=== PATIENT | male | born 1965 | race Caucasian/White ===

== ENCOUNTER 2017-08-09 12:41 | Emergency (ER) | payer MEDICARE, OTHER ==
[~2017-08-09] VITALS: Ht 182.9 cm; Wt 124.3 kg
[~2017-08-09 12:41] MED LIST: AMIT50 PO; AMOCLA875 PO; AMOX500 PO; BACL10 PO; BENZ1; BENZ1 PO; BENZ2 PO; BUSP5; Bactrim Ds Tab1 EACH PO; Benztropine Mesy1 MG; CLON.5 PO; CLON1; CLON1 PO; CLON2; CODGUAEL PO; CYCL10 PO; DOC250 PO; DOXY100 PO; Desyrel50 MG PO; GABA100 PO; GABA300 PO; HYDACE5 PO; HYDGUAL120 PO; IBUP800 PO; Keflex500 MG PO; META800 PO; METCAR500 PO; NAPR500 PO; Naprosyn500 MG PO; Norco 5-325 Ta1 EACH PO; OLAN5 PO; Robaxin500 MG PO; SAPHRIS10 MG SL; TRIH2 PO; ZIPR80; ZIPR80 PO; [UNRECOGNIZED DRUG - REMARK]
[2017-08-09] MEDS ORDERED: CYCL10 PO (12:55)
[2017-08-09] MEDS ORDERED: ARIP10 PO (12:55)
[2017-08-09] MEDS ORDERED: OLAN10 PO (12:56)
[2017-08-09] MEDS ORDERED: Diclofenac Sodi50 MG PO (12:57)
[2017-08-09 13:44] LABS: BASOPHILS ABSOLUTE AUTO 0.05 K/mm3 (0.00-0.23); BASOPHILS PERCENT AUTO 1 % (0-2); EOSINOPHILS ABSOLUTE AUTO 0.36 K/mm3 (0.00-0.68); EOSINOPHILS PERCENT AUTO 4 % (0-6); Hematocrit 43.3 % (37.0-53.0); Hemoglobin 14.5 g/dL (13.5-17.5); IMMATURE GRAN ABSOLUTE AUTO 0.01 K/mm3 (0.00-0.10); IMMATURE GRAN PERCENT AUTO 0 % (0-1); LYMPHOCYTES ABSOLUTE AUTO 3.21 K/mm3 (0.84-5.20); LYMPHOCYTES PERCENT AUTO 39 % (21-46); MONOCYTES ABSOLUTE AUTO 0.83 K/mm3 (0.16-1.47); MONOCYTES PERCENT AUTO 10 % (4-13); Mean Corpuscular HGB 30.2 pg (26.0-34.0); Mean Corpuscular HGB Conc 33.5 g/dL (31.5-36.5); Mean Corpuscular Volume 90 fL (80-100); Mean Platelet Volume 10.9 fL (9.1-12.4); NEUTROPHILS ABSOLUTE AUTO 3.82 K/mm3 (1.96-9.15); NEUTROPHILS PERCENT AUTO 46 % (41-73); Platelet Count 266 K/mm3 (150-400); RDW Coefficient Variation 13.1 % (11.7-14.2); RDW Standard Deviation 43.1 fL (35.1-46.3); White Blood Cell Count 8.28 K/mm3 (4.00-11.30)
[2017-08-09 14:03] LABS: Alanine Aminotransfer (ALT/SGP 37 U/L (12-78); Albumin, Blood 3.6 g/dL (3.4-5.0); Albumin/Globulin Ratio 1.1 (0.8-1.8); Alk Phos 79 U/L (50-136); Anion Gap 7 mmol/L (6-16); Aspartate Aminotrans (AST/SGOT 31 U/L (12-37); Bilirubin, Total 0.4 mg/dL (0.1-1.0); Blood Urea Nitrogen 16 mg/dL (8-24); Bun/Creatinine Ratio 16.3 (12.0-20.0); CO2, Blood 27 mmol/L (21-32); Chloride, Blood 106 mmol/L (98-108); Creatinine, Blood 0.98 mg/dL (0.60-1.20); Globulin, Blood 3.4 g/dL (2.2-4.0); Glomerular Filtration Rate >60 (60-); Glucose, Blood 107 mg/dL (70-99); Potassium, Blood 4.7 mmol/L (3.5-5.5); Sodium, Blood 140 mmol/L (136-145)
[2017-08-09] MEDS ORDERED: Ultram50 MG PO (14:24)
[2017-08-09] MEDS ORDERED: METPRE4DP PO (14:24)
[2018-01-27] MEDS ORDERED: CYCL10 PO (19:51)
== END 2017-08-09 14:37 | disposition home or self-care (01) ==
LOC: ER 12:41
PROVIDERS: Internal Medicine
DX: M54.16 Radiculopathy, lumbar region (principal); F17.210 Nicotine dependence, cigarettes, uncomplicated
CPT/HCPCS: 36415; 80053; 83690; 85025; 96374; 96375; 99283; J1100; J1885

== ENCOUNTER 2017-09-01 05:21 | Emergency (ER) | payer MEDICARE, OTHER ==
[~2017-09-01] VITALS: Ht 182.9 cm; Wt 79.4 kg
[~2017-09-01 05:21] MED LIST changes: +ARIP10 PO; +Diclofenac Sodi50 MG PO; +METPRE4DP PO; +OLAN10 PO; +Ultram50 MG PO
[2017-09-01 05:45] LABS: Source, Urine Clean Catch
[2017-09-01 05:48] LABS: Blood, Urine Neg (Neg); Glucose Qualitative, Urine Neg (Neg); Ketones, Urine Neg (Neg); Leukocyte Esterase, Urine 1+ (Neg); Nitrite, Urine Neg (Neg); Protein, Urine Neg (Neg); Specific Gravity, Urine 1.025 (1.003-1.022); Urobilinogen, Urine 1+ (Normal)
[2017-09-01 05:57] LABS: Amorphous Light (0-Heavy); Appearance, Urine Hazy (Clear); Bacteria Mod /hpf; Bilirubin, Urine 1+ (Neg); Color, Urine Yellow (P-Yellow); Hyaline Casts 0-2 /lpf (0-2); Mucus Light (0-Heavy); Red Blood Cells, Urine Not Seen /hpf (0-2); Squamous Epithelial Cells Not Seen /hpf (Few)
[2017-09-01 05:59] LABS: U Amphetamine Screen DETECTED; U Barbituate Screen Not Detected; U Benzodiazapine Screen Not Detected; U Buprenorphine Screen Not Detected; U Cannabinoids Screen DETECTED; U Cocaine Screen Not Detected; U Methadone Screen Not Detected; U Methamphetamine Screen DETECTED; U Opiates Screen Not Detected; U Oxycodone Screen Not Detected; U Phencyclidine Screen Not Detected; U Propoxyphene Screen Not Detected
[2017-09-01 06:14] LABS: BASOPHILS ABSOLUTE AUTO 0.03 K/mm3 (0.00-0.23); BASOPHILS PERCENT AUTO 1 % (0-2); EOSINOPHILS ABSOLUTE AUTO 0.17 K/mm3 (0.00-0.68); EOSINOPHILS PERCENT AUTO 3 % (0-6); Hemoglobin 13.6 g/dL (13.5-17.5); IMMATURE GRAN ABSOLUTE AUTO 0.01 K/mm3 (0.00-0.10); IMMATURE GRAN PERCENT AUTO 0 % (0-1); LYMPHOCYTES ABSOLUTE AUTO 1.06 K/mm3 (0.84-5.20); LYMPHOCYTES PERCENT AUTO 18 % (21-46); MONOCYTES ABSOLUTE AUTO 0.49 K/mm3 (0.16-1.47); MONOCYTES PERCENT AUTO 8 % (4-13); Mean Corpuscular HGB 30.1 pg (26.0-34.0); Mean Corpuscular Volume 89 fL (80-100); Mean Platelet Volume 10.1 fL (9.1-12.4); NEUTROPHILS ABSOLUTE AUTO 4.13 K/mm3 (1.96-9.15); NEUTROPHILS PERCENT AUTO 70 % (41-73); Platelet Count 197 K/mm3 (150-400); RDW Coefficient Variation 12.8 % (11.7-14.2); RDW Standard Deviation 41.9 fL (35.1-46.3); Red Blood Cell Count 4.52 M/mm3 (4.30-5.90); White Blood Cell Count 5.89 K/mm3 (4.00-11.30)
[2017-09-01 06:34] LABS: Alanine Aminotransfer (ALT/SGP 59 U/L (12-78); Albumin, Blood 3.7 g/dL (3.4-5.0); Albumin/Globulin Ratio 1.1 (0.8-1.8); Alk Phos 68 U/L (50-136); Anion Gap 9 mmol/L (6-16); Aspartate Aminotrans (AST/SGOT 87 U/L (12-37); Bilirubin, Total 0.6 mg/dL (0.1-1.0); Blood Urea Nitrogen 20 mg/dL (8-24); Bun/Creatinine Ratio 29.2 (12.0-20.0); CO2, Blood 24 mmol/L (21-32); Calcium, Blood 8.5 mg/dL (8.5-10.1); Chloride, Blood 107 mmol/L (98-108); Creatinine, Blood 0.69 mg/dL (0.60-1.20); Ethanol (Alcohol), Blood, Med <3 mg/dL; Globulin, Blood 3.4 g/dL (2.2-4.0); Glomerular Filtration Rate >60 (60-); Glucose, Blood 113 mg/dL (70-99); Potassium, Blood 3.8 mmol/L (3.5-5.5); Salicylate 2.2 mg/dL (2.8-20.0); Sodium, Blood 140 mmol/L (136-145); Total Protein, Blood 7.1 g/dL (6.4-8.2)
[2017-09-01 06:38] LABS: Thyroid Stimulating Hormone 0.986 uIU/mL (0.360-4.800)
[2017-09-01 06:39] LABS: Acetaminophen, Random <2.0 ug/mL (10.0-30.0)
[2017-09-01] MEDS ORDERED: BENZ2 PO (07:08)
[2018-01-27] MEDS ORDERED: CYCL10 PO (19:51)
== END 2017-09-01 12:05 | disposition home or self-care (01) ==
LOC: ER 05:21
PROVIDERS: Emergency Medicine
DX: F20.5 Residual schizophrenia (principal); F19.10 Other psychoactive substance abuse, uncomplicated; F17.200 Nicotine dependence, unspecified, uncomplicated; Z79.899 Other long term (current) drug therapy
CPT/HCPCS: 36415; 80053; 81001; 84443; 85025; 87086; 96372; 99283; G0480; J1885

== ENCOUNTER 2017-09-01 15:33 | Emergency (ER) | payer MEDICARE, OTHER ==
[~2017-09-01] VITALS: Ht 190.5 cm; Wt 129.3 kg
[2018-01-27] MEDS ORDERED: CYCL10 PO (19:51)
== END 2017-09-01 16:10 | disposition home or self-care (01) ==
LOC: ER 15:33
DX: M54.5 Low back pain (principal); G89.29 Other chronic pain; F17.200 Nicotine dependence, unspecified, uncomplicated; Z79.899 Other long term (current) drug therapy
CPT/HCPCS: 99283

== ENCOUNTER 2017-09-11 10:33 | Observation (INO) | payer MEDICARE, OTHER ==
[~2017-09-11] VITALS: Ht 185.4 cm; Wt 109.1 kg
[2017-09-11] MEDS ORDERED: IBUP800 PO (21:09)
[2017-09-12] MEDS ORDERED: DEXA4 PO (10:17)
[2018-01-27] MEDS ORDERED: CYCL10 PO (19:51)
== END 2017-09-12 10:59 | disposition home or self-care (01) ==
LOC: ER 10:33 → MEDS 10:34 → ENPENDDIS 09-12 10:16 → MEDS 09-12 10:59
DX: M48.061 Spinal stenosis, lumbar region without neurogenic claudication (principal); F20.0 Paranoid schizophrenia; G89.29 Other chronic pain; F15.10 Other stimulant abuse, uncomplicated; F12.10 Cannabis abuse, uncomplicated; F17.200 Nicotine dependence, unspecified, uncomplicated; Z98.890 Other specified postprocedural states; Z79.899 Other long term (current) drug therapy
CPT/HCPCS: 51798; 72100; 90471; 90714; 96372; 96374; 96376; 97161; 97530; 99285; G0378; G8978; G8979; J1100; J1650

== ENCOUNTER 2017-11-09 08:37 | Emergency (ER) | payer MEDICARE, OTHER ==
[~2017-11-09] VITALS: Ht 185.4 cm; Wt 115.7 kg
[~2017-11-09 08:37] MED LIST changes: +DEXA4 PO
[2017-11-09] MEDS ORDERED: CLON.2 PO (08:48)
[2017-11-09 09:30] LABS: Calcium, Ionized (POC) 1.27 mmol/L (1.10-1.46); Chloride (POC) 105 mmol/L (98-108); Creatinine (POC) 0.6 mg/dL (0.8-1.3); Glucose (ISTAT POC) 121 mg/dL (70-99); Hemoglobin (POC) 13.3 g/dL (13.5-17.5); Sodium (POC) 142 mmol/L (135-148); Total CO2 (POC) 26 mmol/L (21-32)
== END 2017-11-09 09:40 | disposition home or self-care (01) ==
LOC: ER 08:37
PROVIDERS: Physician Assistant
DX: M54.5 Low back pain (principal); G89.29 Other chronic pain; F17.200 Nicotine dependence, unspecified, uncomplicated; Z79.899 Other long term (current) drug therapy
CPT/HCPCS: 36415; 80047; 85014; 99283

== ENCOUNTER 2017-12-23 20:19 | Observation (INO) | payer MEDICARE, OTHER ==
[~2017-12-23] VITALS: Ht 185.4 cm; Wt 108.9 kg
[~2017-12-23 20:19] MED LIST changes: +CLON.2 PO
[2017-12-23 21:15] LABS: Source, Urine Voided
[2017-12-23 21:20] LABS: BASOPHILS ABSOLUTE AUTO 0.03 K/mm3 (0.00-0.23); BASOPHILS PERCENT AUTO 0 % (0-2); EOSINOPHILS ABSOLUTE AUTO 0.12 K/mm3 (0.00-0.68); EOSINOPHILS PERCENT AUTO 2 % (0-6); Hematocrit 40.8 % (37.0-53.0); Hemoglobin 13.3 g/dL (13.5-17.5); IMMATURE GRAN ABSOLUTE AUTO 0.02 K/mm3 (0.00-0.10); IMMATURE GRAN PERCENT AUTO 0 % (0-1); LYMPHOCYTES ABSOLUTE AUTO 1.88 K/mm3 (0.84-5.20); LYMPHOCYTES PERCENT AUTO 23 % (21-46); MONOCYTES ABSOLUTE AUTO 0.61 K/mm3 (0.16-1.47); MONOCYTES PERCENT AUTO 8 % (4-13); Mean Corpuscular HGB 29.2 pg (26.0-34.0); Mean Corpuscular HGB Conc 32.6 g/dL (31.5-36.5); Mean Corpuscular Volume 90 fL (80-100); Mean Platelet Volume 10.2 fL (9.1-12.4); NEUTROPHILS PERCENT AUTO 67 % (41-73); Platelet Count 264 K/mm3 (150-400); RDW Coefficient Variation 14.3 % (11.7-14.2); RDW Standard Deviation 46.6 fL (35.1-46.3); Red Blood Cell Count 4.55 M/mm3 (4.30-5.90); White Blood Cell Count 8.16 K/mm3 (4.00-11.30)
[2017-12-23 21:34] LABS: Appearance, Urine Hazy (Clear); Blood, Urine 5+ (Neg); Color, Urine Amber (P-Yellow); Glucose Qualitative, Urine Neg (Neg); Ketones, Urine 2+ (Neg); Leukocyte Esterase, Urine 1+ (Neg); Nitrite, Urine Neg (Neg); Protein, Urine 2+ (Neg); Specific Gravity, Urine 1.025 (1.003-1.022); Urobilinogen, Urine 1+ (Normal)
[2017-12-23 21:45] LABS: Bilirubin, Urine 1+ (Neg)
[2017-12-23 21:47] LABS: Alanine Aminotransfer (ALT/SGP 35 U/L (12-78); Albumin/Globulin Ratio 1.4 (0.8-1.8); Alk Phos 93 U/L (50-136); Anion Gap 7 mmol/L (6-16); Aspartate Aminotrans (AST/SGOT 43 U/L (12-37); Bilirubin, Total 0.7 mg/dL (0.1-1.0); Blood Urea Nitrogen 14 mg/dL (8-24); Bun/Creatinine Ratio 13.6 (12.0-20.0); CO2, Blood 29 mmol/L (21-32); Chloride, Blood 110 mmol/L (98-108); Creatinine, Blood 1.03 mg/dL (0.60-1.20); Ethanol (Alcohol), Blood, Med <3 mg/dL; Globulin, Blood 2.9 g/dL (2.2-4.0); Glomerular Filtration Rate >60 (60-); Glucose, Blood 87 mg/dL (70-99); Potassium, Blood 4.2 mmol/L (3.5-5.5); Salicylate 2.6 mg/dL (2.8-20.0); Sodium, Blood 146 mmol/L (136-145); Total Protein, Blood 6.9 g/dL (6.4-8.2)
[2017-12-23 21:48] LABS: Amorphous Mod (0-Heavy); Bacteria Few /hpf; Calcium Oxalate Crystals Mod /hpf; Mucus Light (0-Heavy); Squamous Epithelial Cells Rare /hpf (Few)
[2017-12-23 21:49] LABS: U Amphetamine Screen DETECTED; U Barbituate Screen Not Detected; U Benzodiazapine Screen Not Detected; U Buprenorphine Screen Not Detected; U Cannabinoids Screen DETECTED; U Cocaine Screen Not Detected; U Methadone Screen Not Detected; U Methamphetamine Screen DETECTED; U Opiates Screen Not Detected; U Oxycodone Screen Not Detected; U Phencyclidine Screen Not Detected; U Propoxyphene Screen Not Detected
[2017-12-23 21:50] LABS: Acetaminophen, Random <2.0 ug/mL (10.0-30.0); Thyroid Stimulating Hormone 0.924 uIU/mL (0.360-4.800)
== END 2017-12-24 08:28 | disposition home or self-care (01) ==
LOC: ER 20:19 → EOR 20:20
PROVIDERS: Emergency Medicine
DX: R45.851 Suicidal ideations (principal); F20.0 Paranoid schizophrenia; F15.159 Other stimulant abuse with stimulant-induced psychotic disorder, unspecified; M54.9 Dorsalgia, unspecified; G89.29 Other chronic pain; F17.210 Nicotine dependence, cigarettes, uncomplicated; Z79.899 Other long term (current) drug therapy
CPT/HCPCS: 36415; 80053; 81001; 84443; 85025; 87086; 99285; G0378; G0480

== ENCOUNTER 2017-12-26 09:32 | Observation (INO) | payer MEDICARE, OTHER ==
[~2017-12-26] VITALS: Ht 185.4 cm; Wt 108.9 kg
[2017-12-26 11:19] LABS: BASOPHILS ABSOLUTE AUTO 0.02 K/mm3 (0.00-0.23); BASOPHILS PERCENT AUTO 0 % (0-2); EOSINOPHILS ABSOLUTE AUTO 0.09 K/mm3 (0.00-0.68); EOSINOPHILS PERCENT AUTO 1 % (0-6); IMMATURE GRAN ABSOLUTE AUTO 0.02 K/mm3 (0.00-0.10); IMMATURE GRAN PERCENT AUTO 0 % (0-1); LYMPHOCYTES ABSOLUTE AUTO 1.25 K/mm3 (0.84-5.20); LYMPHOCYTES PERCENT AUTO 19 % (21-46); MONOCYTES ABSOLUTE AUTO 0.57 K/mm3 (0.16-1.47); MONOCYTES PERCENT AUTO 9 % (4-13); Mean Corpuscular HGB 28.3 pg (26.0-34.0); Mean Corpuscular HGB Conc 31.7 g/dL (31.5-36.5); Mean Corpuscular Volume 89 fL (80-100); Mean Platelet Volume 10.2 fL (9.1-12.4); NEUTROPHILS ABSOLUTE AUTO 4.78 K/mm3 (1.96-9.15); NEUTROPHILS PERCENT AUTO 71 % (41-73); Platelet Count 218 K/mm3 (150-400); RDW Coefficient Variation 14.5 % (11.7-14.2); RDW Standard Deviation 46.7 fL (35.1-46.3); White Blood Cell Count 6.73 K/mm3 (4.00-11.30)
[2017-12-26 11:43] LABS: Alanine Aminotransfer (ALT/SGP 26 U/L (12-78); Albumin, Blood 3.6 g/dL (3.4-5.0); Albumin/Globulin Ratio 1.1 (0.8-1.8); Alk Phos 91 U/L (50-136); Anion Gap 7 mmol/L (6-16); Aspartate Aminotrans (AST/SGOT 20 U/L (12-37); Bilirubin, Total 0.8 mg/dL (0.1-1.0); Blood Urea Nitrogen 9 mg/dL (8-24); Bun/Creatinine Ratio 8.7 (12.0-20.0); CO2, Blood 29 mmol/L (21-32); Calcium, Blood 8.6 mg/dL (8.5-10.1); Chloride, Blood 108 mmol/L (98-108); Creatinine, Blood 1.03 mg/dL (0.60-1.20); Ethanol (Alcohol), Blood, Med <3 mg/dL; Globulin, Blood 3.2 g/dL (2.2-4.0); Glomerular Filtration Rate >60 (60-); Glucose, Blood 116 mg/dL (70-99); Salicylate 2.9 mg/dL (2.8-20.0); Sodium, Blood 144 mmol/L (136-145); Total Protein, Blood 6.8 g/dL (6.4-8.2)
[2017-12-26 11:45] LABS: Thyroid Stimulating Hormone 0.601 uIU/mL (0.360-4.800)
[2017-12-26 11:54] LABS: Acetaminophen, Random <2.0 ug/mL (10.0-30.0)
[2017-12-26 13:11] LABS: Source, Urine Clean Catch
[2017-12-26 13:24] LABS: Bilirubin, Urine Neg (Neg); Blood, Urine Neg (Neg); Glucose Qualitative, Urine Neg (Neg); Ketones, Urine 1+ (Neg); Leukocyte Esterase, Urine Neg (Neg); Nitrite, Urine Neg (Neg); Protein, Urine Neg (Neg); Urobilinogen, Urine NORM (Normal)
[2017-12-26 13:37] LABS: U Amphetamine Screen DETECTED; U Cannabinoids Screen DETECTED; U Methamphetamine Screen DETECTED
[2017-12-26 13:38] LABS: Appearance, Urine Clear (Clear); Color, Urine Yellow (P-Yellow); U Barbituate Screen Not Detected; U Benzodiazapine Screen Not Detected; U Buprenorphine Screen Not Detected; U Cocaine Screen Not Detected; U Methadone Screen Not Detected; U Opiates Screen Not Detected; U Oxycodone Screen Not Detected; U Phencyclidine Screen Not Detected; U Propoxyphene Screen Not Detected
== END 2017-12-26 14:29 | disposition home or self-care (01) ==
LOC: ER 09:32 → EOR 09:33
PROVIDERS: Emergency Medicine
DX: F15.10 Other stimulant abuse, uncomplicated (principal); F20.0 Paranoid schizophrenia; F17.200 Nicotine dependence, unspecified, uncomplicated; M54.9 Dorsalgia, unspecified; G89.29 Other chronic pain; Z79.899 Other long term (current) drug therapy
CPT/HCPCS: 36415; 80053; 81003; 84443; 85025; 99285; G0378; G0480; Q3014

== ENCOUNTER 2018-01-01 22:32 | Observation (INO) | payer MEDICARE, OTHER ==
[~2018-01-01] VITALS: Ht 185.4 cm; Wt 109.3 kg
[2018-01-01] MEDS ORDERED: CYCL10 PO (22:41)
[2018-01-01] MEDS ORDERED: TRAM50 PO (22:41)
[2018-01-01] MEDS ORDERED: Diclofenac Sodi50 MG PO (22:41)
[2018-01-01] MEDS ORDERED: SAPHRIS10 MG SL (22:42)
[2018-01-02 01:02] LABS: Source, Urine Voided
[2018-01-02 01:07] LABS: BASOPHILS ABSOLUTE AUTO 0.05 K/mm3 (0.00-0.23); BASOPHILS PERCENT AUTO 1 % (0-2); EOSINOPHILS ABSOLUTE AUTO 0.29 K/mm3 (0.00-0.68); EOSINOPHILS PERCENT AUTO 3 % (0-6); Hematocrit 38.6 % (37.0-53.0); Hemoglobin 12.9 g/dL (13.5-17.5); IMMATURE GRAN ABSOLUTE AUTO 0.01 K/mm3 (0.00-0.10); IMMATURE GRAN PERCENT AUTO 0 % (0-1); LYMPHOCYTES ABSOLUTE AUTO 2.29 K/mm3 (0.84-5.20); LYMPHOCYTES PERCENT AUTO 27 % (21-46); MONOCYTES PERCENT AUTO 9 % (4-13); Mean Corpuscular HGB 29.1 pg (26.0-34.0); Mean Corpuscular HGB Conc 33.4 g/dL (31.5-36.5); Mean Corpuscular Volume 87 fL (80-100); Mean Platelet Volume 10.4 fL (9.1-12.4); NEUTROPHILS ABSOLUTE AUTO 5.12 K/mm3 (1.96-9.15); NEUTROPHILS PERCENT AUTO 60 % (41-73); Platelet Count 265 K/mm3 (150-400); RDW Coefficient Variation 14.1 % (11.7-14.2); RDW Standard Deviation 45.6 fL (35.1-46.3); Red Blood Cell Count 4.43 M/mm3 (4.30-5.90); White Blood Cell Count 8.56 K/mm3 (4.00-11.30)
[2018-01-02 01:13] LABS: Blood, Urine Neg (Neg); Glucose Qualitative, Urine Neg (Neg); Ketones, Urine Neg (Neg); Leukocyte Esterase, Urine 1+ (Neg); Nitrite, Urine Neg (Neg); Protein, Urine 1+ (Neg); Urobilinogen, Urine 3+ (Normal)
[2018-01-02 01:15] LABS: Appearance, Urine Clear (Clear); Bilirubin, Urine 1+ (Neg); Color, Urine Amber (P-Yellow)
[2018-01-02 01:29] LABS: U Amphetamine Screen DETECTED; U Barbituate Screen Not Detected; U Benzodiazapine Screen Not Detected; U Buprenorphine Screen Not Detected; U Cannabinoids Screen DETECTED; U Cocaine Screen Not Detected; U Methadone Screen Not Detected; U Methamphetamine Screen DETECTED; U Opiates Screen Not Detected; U Oxycodone Screen Not Detected; U Phencyclidine Screen Not Detected; U Propoxyphene Screen Not Detected
[2018-01-02 01:30] LABS: Alanine Aminotransfer (ALT/SGP 50 U/L (12-78); Albumin, Blood 3.4 g/dL (3.4-5.0); Albumin/Globulin Ratio 1.1 (0.8-1.8); Alk Phos 105 U/L (50-136); Anion Gap 11 mmol/L (6-16); Aspartate Aminotrans (AST/SGOT 39 U/L (12-37); Bilirubin, Total 0.5 mg/dL (0.1-1.0); Blood Urea Nitrogen 17 mg/dL (8-24); CO2, Blood 25 mmol/L (21-32); Calcium, Blood 8.3 mg/dL (8.5-10.1); Chloride, Blood 106 mmol/L (98-108); Creatinine, Blood 0.77 mg/dL (0.60-1.20); Ethanol (Alcohol), Blood, Med <3 mg/dL; Globulin, Blood 3.2 g/dL (2.2-4.0); Glomerular Filtration Rate >60 (60-); Glucose, Blood 94 mg/dL (70-99); Potassium, Blood 3.6 mmol/L (3.5-5.5); Salicylate 3.4 mg/dL (2.8-20.0); Sodium, Blood 142 mmol/L (136-145); Total Protein, Blood 6.6 g/dL (6.4-8.2)
[2018-01-02 01:33] LABS: Bacteria Rare /hpf; Mucus Light ([, 0-Heavy]); Red Blood Cells, Urine Not Seen /hpf (0-2); Squamous Epithelial Cells Not Seen /hpf (Few); White Blood Cells, Urine 0-2 /hpf (0-5)
[2018-01-02 01:35] LABS: Acetaminophen, Random <2.0 ug/mL (10.0-30.0)
== END 2018-01-02 09:20 | disposition home or self-care (01) ==
LOC: ER 22:32 → EOR 01-02 02:31
PROVIDERS: Emergency Medicine
DX: R45.851 Suicidal ideations (principal); F20.9 Schizophrenia, unspecified; F15.959 Other stimulant use, unspecified with stimulant-induced psychotic disorder, unspecified; Z79.899 Other long term (current) drug therapy; Z91.14 Patient's other noncompliance with medication regimen
CPT/HCPCS: 36415; 80053; 81001; 84443; 85025; 87086; 99285; G0378; G0480; Q3014

== ENCOUNTER 2018-01-02 11:37 | Observation (INO) | payer MEDICARE, OTHER ==
[~2018-01-02] VITALS: Ht 182.9 cm; Wt 109.3 kg
[~2018-01-02 11:37] MED LIST changes: +TRAM50 PO
== END 2018-01-02 15:13 | disposition home or self-care (01) ==
LOC: ER 11:37 → EOR 11:38
DX: R44.0 Auditory hallucinations (principal); F20.9 Schizophrenia, unspecified; M54.9 Dorsalgia, unspecified; G89.29 Other chronic pain; F17.210 Nicotine dependence, cigarettes, uncomplicated; Z79.899 Other long term (current) drug therapy
CPT/HCPCS: 96372; 99285-25; G0378

== ENCOUNTER 2018-01-18 10:47 | Emergency (ER) | payer MEDICARE, OTHER ==
[~2018-01-18] VITALS: Ht 185.4 cm; Wt 111.6 kg
[2018-01-18] MEDS ORDERED: Naprosyn500 MG PO (11:26)
== END 2018-01-18 11:31 | disposition home or self-care (01) ==
LOC: ER 10:47
DX: G89.29 Other chronic pain (principal); M54.5 Low back pain; Z79.899 Other long term (current) drug therapy; F17.210 Nicotine dependence, cigarettes, uncomplicated
CPT/HCPCS: 99282

== ENCOUNTER 2018-02-20 17:13 | Emergency (ER) | payer MEDICARE, OTHER ==
[~2018-02-20] VITALS: Ht 185.4 cm; Wt 104.8 kg
[2018-02-20 20:16] LABS: BASOPHILS ABSOLUTE AUTO 0.03 K/mm3 (0.00-0.23); BASOPHILS PERCENT AUTO 1 % (0-2); EOSINOPHILS ABSOLUTE AUTO 0.21 K/mm3 (0.00-0.68); EOSINOPHILS PERCENT AUTO 4 % (0-6); Hematocrit 37.4 % (37.0-53.0); Hemoglobin 12.5 g/dL (13.5-17.5); IMMATURE GRAN ABSOLUTE AUTO 0.01 K/mm3 (0.00-0.10); IMMATURE GRAN PERCENT AUTO 0 % (0-1); LYMPHOCYTES PERCENT AUTO 43 % (21-46); MONOCYTES ABSOLUTE AUTO 0.45 K/mm3 (0.16-1.47); MONOCYTES PERCENT AUTO 8 % (4-13); Mean Corpuscular HGB 29.6 pg (26.0-34.0); Mean Corpuscular HGB Conc 33.4 g/dL (31.5-36.5); Mean Corpuscular Volume 89 fL (80-100); Mean Platelet Volume 10.4 fL (9.1-12.4); NEUTROPHILS ABSOLUTE AUTO 2.67 K/mm3 (1.96-9.15); NEUTROPHILS PERCENT AUTO 45 % (41-73); Platelet Count 224 K/mm3 (150-400); RDW Coefficient Variation 14.4 % (11.7-14.2); RDW Standard Deviation 46.3 fL (35.1-46.3); Red Blood Cell Count 4.22 M/mm3 (4.30-5.90); White Blood Cell Count 5.87 K/mm3 (4.00-11.30)
[2018-02-20 20:34] LABS: C-REACTIVE PROTEIN, EXT RANGE <0.290 mg/dL (0.000-0.300)
[2018-02-20 20:36] LABS: Alanine Aminotransfer (ALT/SGP 36 U/L (12-78); Albumin, Blood 3.6 g/dL (3.4-5.0); Albumin/Globulin Ratio 1.2 (0.8-1.8); Alk Phos 83 U/L (50-136); Anion Gap 6 mmol/L (6-16); Aspartate Aminotrans (AST/SGOT 26 U/L (12-37); Bilirubin, Total 0.3 mg/dL (0.1-1.0); Blood Urea Nitrogen 17 mg/dL (8-24); Bun/Creatinine Ratio 24.4 (12.0-20.0); CO2, Blood 26 mmol/L (21-32); Calcium, Blood 8.7 mg/dL (8.5-10.1); Chloride, Blood 109 mmol/L (98-108); Globulin, Blood 2.9 g/dL (2.2-4.0); Glomerular Filtration Rate >60 (60-); Glucose, Blood 104 mg/dL (70-99); Potassium, Blood 4.1 mmol/L (3.5-5.5); Sodium, Blood 141 mmol/L (136-145); Total Protein, Blood 6.5 g/dL (6.4-8.2)
[2018-02-20] MEDS ORDERED: LIDO700A20 TOP (21:58)
[2018-02-20] MEDS ORDERED: Baclofen10 MG PO (21:58)
== END 2018-02-20 22:23 | disposition home or self-care (01) ==
LOC: ER 17:13
PROVIDERS: Physician Assistant
DX: G89.29 Other chronic pain (principal); M54.5 Low back pain; F17.210 Nicotine dependence, cigarettes, uncomplicated; Z79.899 Other long term (current) drug therapy
CPT/HCPCS: 72100; 72132; 80053; 85025; 85651; 86140; 96374; 96375; 99284-25; J1100; J1885; Q9967

== ENCOUNTER → 2018-03-14 | Outpatient (CLI) | payer MEDICARE, OTHER ==
[~2018-03-14] MED LIST changes: +Baclofen10 MG PO; +LIDO700A20 TOP
[2018-03-14 16:44] LABS: U Amphetamine Screen Not Detected; U Barbituate Screen Not Detected; U Benzodiazapine Screen Not Detected; U Buprenorphine Screen Not Detected; U Cannabinoids Screen DETECTED; U Cocaine Screen Not Detected; U Methadone Screen Not Detected; U Methamphetamine Screen Not Detected; U Opiates Screen Not Detected; U Oxycodone Screen Not Detected; U Phencyclidine Screen Not Detected; U Propoxyphene Screen Not Detected
== END ==
LOC: LAB SHORT 12:00 → LAB 12:00
PROVIDERS: Nurse Practitioner Family
DX: Z51.81 Encounter for therapeutic drug level monitoring (principal); Z79.899 Other long term (current) drug therapy

== ENCOUNTER 2018-11-05 20:23 | Emergency (ER) | payer MEDICARE, OTHER ==
[~2018-11-05] VITALS: Ht 185.4 cm; Wt 102.1 kg
[~2018-11-05 20:23] MED LIST changes: +SULI150 PO
[2018-11-05 21:11] LABS: BASOPHILS ABSOLUTE AUTO 0.08 K/mm3 (0.00-0.23); BASOPHILS PERCENT AUTO 1 % (0-2); EOSINOPHILS ABSOLUTE AUTO 0.24 K/mm3 (0.00-0.68); EOSINOPHILS PERCENT AUTO 3 % (0-6); Hematocrit 46.4 % (37.0-53.0); Hemoglobin 15.1 g/dL (13.5-17.5); IMMATURE GRAN ABSOLUTE AUTO 0.02 K/mm3 (0.00-0.10); IMMATURE GRAN PERCENT AUTO 0 % (0-1); LYMPHOCYTES ABSOLUTE AUTO 2.36 K/mm3 (0.84-5.20); LYMPHOCYTES PERCENT AUTO 29 % (21-46); MONOCYTES ABSOLUTE AUTO 0.58 K/mm3 (0.16-1.47); MONOCYTES PERCENT AUTO 7 % (4-13); Mean Corpuscular HGB 29.8 pg (26.0-34.0); Mean Corpuscular HGB Conc 32.5 g/dL (31.5-36.5); Mean Corpuscular Volume 92 fL (80-100); NEUTROPHILS PERCENT AUTO 60 % (41-73); Platelet Count 220 K/mm3 (150-400); RDW Coefficient Variation 13.1 % (11.7-14.2); RDW Standard Deviation 44.1 fL (35.1-46.3); Red Blood Cell Count 5.06 M/mm3 (4.30-5.90); White Blood Cell Count 8.18 K/mm3 (4.00-11.30)
[2018-11-05 21:26] LABS: Alanine Aminotransfer (ALT/SGP 22 U/L (12-78); Albumin, Blood 3.6 g/dL (3.4-5.0); Albumin/Globulin Ratio 1.2 (0.8-1.8); Alk Phos 98 U/L (50-136); Anion Gap 7 mmol/L (6-16); Aspartate Aminotrans (AST/SGOT 24 U/L (12-37); Bilirubin, Total 0.4 mg/dL (0.1-1.0); Blood Urea Nitrogen 14 mg/dL (8-24); Bun/Creatinine Ratio 19.6 (12.0-20.0); CO2, Blood 27 mmol/L (21-32); Calcium, Blood 8.7 mg/dL (8.5-10.1); Chloride, Blood 108 mmol/L (98-108); Creatinine, Blood 0.72 mg/dL (0.60-1.20); Glomerular Filtration Rate >60 (60-); Glucose, Blood 131 mg/dL (70-99); Potassium, Blood 3.6 mmol/L (3.5-5.5); Sodium, Blood 142 mmol/L (136-145); Total Protein, Blood 6.6 g/dL (6.4-8.2); Troponin I <0.015 ng/mL (0.000-0.040)
[2018-11-05] MEDS ORDERED: BENZ2 (21:44)
[2018-11-05] MEDS ORDERED: DIPH50 PO (21:45)
[2018-11-05 23:31] LABS: PCO2 Arterial 47.8 mmHg (35-45)
== END 2018-11-06 00:05 | disposition home or self-care (01) ==
LOC: ER 20:23
PROVIDERS: Emergency Medicine
DX: F41.0 Panic disorder [episodic paroxysmal anxiety] (principal); F20.9 Schizophrenia, unspecified; F17.210 Nicotine dependence, cigarettes, uncomplicated
CPT/HCPCS: 36415; 36600; 71045; 80053; 82803; 84484; 85025; 85379; 93005; 93010; 96374; 99284-25; J2060

== ENCOUNTER 2018-12-24 10:56 | Emergency (ER) | payer MEDICARE, OTHER ==
[~2018-12-24] VITALS: Ht 185.4 cm; Wt 103.9 kg
[~2018-12-24 10:56] MED LIST changes: -CLON.2 PO; +DIPH50 PO; -OLAN10 PO
[2018-12-24 11:18] LABS: BASOPHILS ABSOLUTE AUTO 0.02 K/mm3 (0.00-0.23); BASOPHILS PERCENT AUTO 0 % (0-2); EOSINOPHILS ABSOLUTE AUTO 0.08 K/mm3 (0.00-0.68); EOSINOPHILS PERCENT AUTO 1 % (0-6); Hematocrit 48.3 % (37.0-53.0); Hemoglobin 15.8 g/dL (13.5-17.5); IMMATURE GRAN ABSOLUTE AUTO 0.01 K/mm3 (0.00-0.10); IMMATURE GRAN PERCENT AUTO 0 % (0-1); LYMPHOCYTES ABSOLUTE AUTO 1.26 K/mm3 (0.84-5.20); LYMPHOCYTES PERCENT AUTO 21 % (21-46); MONOCYTES ABSOLUTE AUTO 0.39 K/mm3 (0.16-1.47); MONOCYTES PERCENT AUTO 7 % (4-13); Mean Corpuscular HGB Conc 32.7 g/dL (31.5-36.5); Mean Corpuscular Volume 92 fL (80-100); Mean Platelet Volume 11.2 fL (9.1-12.4); NEUTROPHILS ABSOLUTE AUTO 4.25 K/mm3 (1.96-9.15); NEUTROPHILS PERCENT AUTO 71 % (41-73); Platelet Count 215 K/mm3 (150-400); RDW Coefficient Variation 12.7 % (11.7-14.2); RDW Standard Deviation 42.9 fL (35.1-46.3); Red Blood Cell Count 5.26 M/mm3 (4.30-5.90); White Blood Cell Count 6.01 K/mm3 (4.00-11.30)
[2018-12-24 11:38] LABS: Alanine Aminotransfer (ALT/SGP 43 U/L (12-78); Albumin, Blood 3.8 g/dL (3.4-5.0); Albumin/Globulin Ratio 1.2 (0.8-1.8); Alk Phos 101 U/L (50-136); Anion Gap 5 mmol/L (6-16); Aspartate Aminotrans (AST/SGOT 33 U/L (12-37); Bilirubin, Total 0.4 mg/dL (0.1-1.0); Blood Urea Nitrogen 9 mg/dL (8-24); Bun/Creatinine Ratio 13.1 (12.0-20.0); CO2, Blood 31 mmol/L (21-32); Calcium, Blood 9.4 mg/dL (8.5-10.1); Chloride, Blood 108 mmol/L (98-108); Creatinine, Blood 0.69 mg/dL (0.60-1.20); Globulin, Blood 3.3 g/dL (2.2-4.0); Glomerular Filtration Rate >60 (60-); Glucose, Blood 137 mg/dL (70-99); Potassium, Blood 3.5 mmol/L (3.5-5.5); Sodium, Blood 144 mmol/L (136-145); Total Protein, Blood 7.1 g/dL (6.4-8.2); Troponin I <0.015 ng/mL (0.000-0.040)
== END 2018-12-24 13:04 | disposition home or self-care (01) ==
LOC: ER 10:56
PROVIDERS: Emergency Medicine
DX: M54.12 Radiculopathy, cervical region (principal); Z79.899 Other long term (current) drug therapy; F17.210 Nicotine dependence, cigarettes, uncomplicated
CPT/HCPCS: 36415; 71046; 80053; 84484; 85025; 93005; 93010; 99284-25

== ENCOUNTER 2019-02-02 15:19 | Inpatient (IN) | payer MEDICARE, OTHER ==
[~2019-02-02] VITALS: Ht 185.4 cm; Wt 103.0 kg
[2019-02-02 16:32] LABS: BASOPHILS ABSOLUTE AUTO 0.04 K/mm3 (0.00-0.23); BASOPHILS PERCENT AUTO 1 % (0-2); EOSINOPHILS ABSOLUTE AUTO 0.33 K/mm3 (0.00-0.68); EOSINOPHILS PERCENT AUTO 7 % (0-6); Hematocrit 40.1 % (37.0-53.0); IMMATURE GRAN PERCENT AUTO 0 % (0-1); LYMPHOCYTES ABSOLUTE AUTO 1.24 K/mm3 (0.84-5.20); LYMPHOCYTES PERCENT AUTO 28 % (21-46); MONOCYTES ABSOLUTE AUTO 0.47 K/mm3 (0.16-1.47); MONOCYTES PERCENT AUTO 11 % (4-13); Mean Corpuscular HGB 30.7 pg (26.0-34.0); Mean Corpuscular HGB Conc 32.4 g/dL (31.5-36.5); Mean Corpuscular Volume 95 fL (80-100); Mean Platelet Volume 10.8 fL (9.1-12.4); NEUTROPHILS ABSOLUTE AUTO 2.35 K/mm3 (1.96-9.15); NEUTROPHILS PERCENT AUTO 53 % (41-73); Platelet Count 196 K/mm3 (150-400); RDW Coefficient Variation 13.6 % (11.7-14.2); RDW Standard Deviation 47.5 fL (35.1-46.3); Red Blood Cell Count 4.24 M/mm3 (4.30-5.90); White Blood Cell Count 4.43 K/mm3 (4.00-11.30)
[2019-02-02 16:55] LABS: Alanine Aminotransfer (ALT/SGP 157 U/L (12-78); Albumin, Blood 3.3 g/dL (3.4-5.0); Albumin/Globulin Ratio 1.1 (0.8-1.8); Alk Phos 76 U/L (50-136); Anion Gap 3 mmol/L (6-16); Aspartate Aminotrans (AST/SGOT 114 U/L (12-37); Bilirubin, Total 0.3 mg/dL (0.1-1.0); Blood Urea Nitrogen 9 mg/dL (8-24); Bun/Creatinine Ratio 11.6 (12.0-20.0); CO2, Blood 31 mmol/L (21-32); Chloride, Blood 109 mmol/L (98-108); Creatinine, Blood 0.77 mg/dL (0.60-1.20); Globulin, Blood 2.9 g/dL (2.2-4.0); Glomerular Filtration Rate >60 (60-); Glucose, Blood 140 mg/dL (70-99); Potassium, Blood 3.6 mmol/L (3.5-5.5); Sodium, Blood 143 mmol/L (136-145); Total Protein, Blood 6.2 g/dL (6.4-8.2); Troponin I <0.015 ng/mL (0.000-0.040)
[2019-02-02] MEDS ORDERED: CLON.2 PO (18:41)
[2019-02-02] MEDS ORDERED: OLAN10 PO (18:41)
[2019-02-02] MEDS ORDERED: BACL10 PO (18:42)
[2019-02-02] MEDS ORDERED: Benztropine Mesy1 MG PO (18:42)
[2019-02-02] MEDS ORDERED: PYRI100 PO (18:43)
[2019-02-02] MEDS ORDERED: TRAM50 PO (18:44)
[2019-02-02] MEDS ORDERED: IBUP800 PO (18:44)
[2019-02-02] MEDS ORDERED: Gabapentin600 MG PO (18:44)
[2019-02-02] MEDS ORDERED: MIRT15 PO (18:45)
[2019-02-02] MEDS ORDERED: ANORO ELLIPTA1 EACH INH (18:45)
[2019-02-02] MEDS ORDERED: ALBU90OI61 INH (18:45)
[2019-02-02] MEDS ORDERED: Colace100 MG PO (18:46)
--- NOTE | 2019-02-02 20:00 | NUR ---
Patient arrived to the floor via gurney. Transferred independantly to the bed. Patient was settled into the room, Admission and history completed. call light in room.
[2019-02-03 05:07] LABS: BASOPHILS ABSOLUTE AUTO 0.04 K/mm3 (0.00-0.23); BASOPHILS PERCENT AUTO 1 % (0-2); EOSINOPHILS ABSOLUTE AUTO 0.37 K/mm3 (0.00-0.68); EOSINOPHILS PERCENT AUTO 7 % (0-6); Hematocrit 39.7 % (37.0-53.0); Hemoglobin 12.6 g/dL (13.5-17.5); IMMATURE GRAN ABSOLUTE AUTO 0.01 K/mm3 (0.00-0.10); IMMATURE GRAN PERCENT AUTO 0 % (0-1); LYMPHOCYTES ABSOLUTE AUTO 1.77 K/mm3 (0.84-5.20); LYMPHOCYTES PERCENT AUTO 35 % (21-46); MONOCYTES ABSOLUTE AUTO 0.53 K/mm3 (0.16-1.47); MONOCYTES PERCENT AUTO 11 % (4-13); Mean Corpuscular HGB 29.6 pg (26.0-34.0); Mean Corpuscular HGB Conc 31.7 g/dL (31.5-36.5); Mean Corpuscular Volume 93 fL (80-100); Mean Platelet Volume 10.7 fL (9.1-12.4); NEUTROPHILS ABSOLUTE AUTO 2.31 K/mm3 (1.96-9.15); NEUTROPHILS PERCENT AUTO 46 % (41-73); Platelet Count 197 K/mm3 (150-400); RDW Coefficient Variation 13.8 % (11.7-14.2); RDW Standard Deviation 46.8 fL (35.1-46.3); Red Blood Cell Count 4.25 M/mm3 (4.30-5.90); White Blood Cell Count 5.03 K/mm3 (4.00-11.30)
[2019-02-03 05:32] LABS: Anion Gap 4 mmol/L (6-16); Blood Urea Nitrogen 8 mg/dL (8-24); Bun/Creatinine Ratio 11.3 (12.0-20.0); CO2, Blood 32 mmol/L (21-32); Calcium, Blood 8.1 mg/dL (8.5-10.1); Chloride, Blood 108 mmol/L (98-108); Creatinine, Blood 0.71 mg/dL (0.60-1.20); Glomerular Filtration Rate >60 (60-); Glucose, Blood 115 mg/dL (70-99); Potassium, Blood 3.7 mmol/L (3.5-5.5); Sodium, Blood 144 mmol/L (136-145)
--- NOTE | 2019-02-03 06:41 | NUR ---
down for Xray, 4L via NC, call light in reach, sill slow to respond but a+o, saline locked, no complaint of pain but difficulty breathing, will continue to monitor and treat until share bsr with day shift
[2019-02-03] MEDS ORDERED: Levaquin500 MG PO (11:50)
[2019-02-03] MEDS ORDERED: OXYM.05NI (11:51)
--- NOTE | 2019-02-03 14:00 | NUR ---
DISCHARGE INSTRUCTIONS COMPLETED AND DISCUSSED WITH PT EXPRESSING UNDERSTANDING. SCRIPTS FAXED TO [facility] ON [address]. PT REPORTS NO WAY TO GET HOME SO SPOKE WITH PT ADVOCATE AND A TAXI TO TAKE HIM HOME. TO [facility] VIA W/C.
== END 2019-02-03 13:43 | disposition home or self-care (01) | DRG 205 ==
LOC: ER 15:19 → MEDS 18:59 → ENPENDDIS 02-03 11:32 → MEDS 02-03 13:43
PROVIDERS: Emergency Medicine; ADMIT Hospitalist
DX: J98.11 Atelectasis (principal); J96.01 Acute respiratory failure with hypoxia; J91.8 Pleural effusion in other conditions classified elsewhere; M54.5 Low back pain; F20.9 Schizophrenia, unspecified; G89.29 Other chronic pain; F17.210 Nicotine dependence, cigarettes, uncomplicated
CPT/HCPCS: 36415; 71046; 71260; 74177; 80048; 80053; 83880; 84484; 85025; 92610; 93005; 93010; 94760; 94761; 99285-25; J1956; Q9967

== ENCOUNTER 2019-03-17 12:29 | Emergency (ER) | payer MEDICARE, OTHER ==
[~2019-03-17] VITALS: Ht 185.4 cm; Wt 99.8 kg
[~2019-03-17 12:29] MED LIST changes: +ALBU90OI61 INH; +ANORO ELLIPTA1 EACH INH; +Benztropine Mesy1 MG PO; +CLON.2 PO; +Colace100 MG PO; +Gabapentin600 MG PO; +Levaquin500 MG PO; +MIRT15 PO; +OLAN10 PO; +OXYM.05NI; +PYRI100 PO
[2019-03-17] MEDS ORDERED: Monodox100 MG PO (13:42)
[2019-03-17] MEDS ORDERED: Keflex500 MG PO (13:42)
== END 2019-03-17 14:10 | disposition home or self-care (01) ==
LOC: ER 12:29
DX: L02.413 Cutaneous abscess of right upper limb (principal); L03.113 Cellulitis of right upper limb; F20.0 Paranoid schizophrenia; F17.210 Nicotine dependence, cigarettes, uncomplicated; Z79.899 Other long term (current) drug therapy; Z79.891 Long term (current) use of opiate analgesic
CPT/HCPCS: 10160; 99283-25

== ENCOUNTER 2019-03-23 11:30 | Emergency (ER) | payer MEDICARE, OTHER ==
[~2019-03-23] VITALS: Ht 185.4 cm; Wt 103.4 kg
[~2019-03-23 11:30] MED LIST changes: +Monodox100 MG PO
[2019-03-23 12:54] LABS: BASOPHILS ABSOLUTE AUTO 0.04 K/mm3 (0.00-0.23); BASOPHILS PERCENT AUTO 1 % (0-2); EOSINOPHILS PERCENT AUTO 1 % (0-6); Hematocrit 46.7 % (37.0-53.0); Hemoglobin 15.6 g/dL (13.5-17.5); IMMATURE GRAN ABSOLUTE AUTO 0.01 K/mm3 (0.00-0.10); IMMATURE GRAN PERCENT AUTO 0 % (0-1); LYMPHOCYTES ABSOLUTE AUTO 1.47 K/mm3 (0.84-5.20); LYMPHOCYTES PERCENT AUTO 18 % (21-46); MONOCYTES ABSOLUTE AUTO 0.58 K/mm3 (0.16-1.47); MONOCYTES PERCENT AUTO 7 % (4-13); Mean Corpuscular HGB 30.2 pg (26.0-34.0); Mean Corpuscular HGB Conc 33.4 g/dL (31.5-36.5); Mean Corpuscular Volume 90 fL (80-100); Mean Platelet Volume 10.3 fL (9.1-12.4); NEUTROPHILS ABSOLUTE AUTO 6.13 K/mm3 (1.96-9.15); NEUTROPHILS PERCENT AUTO 74 % (41-73); Platelet Count 228 K/mm3 (150-400); RDW Standard Deviation 42.8 fL (35.1-46.3); Red Blood Cell Count 5.17 M/mm3 (4.30-5.90); White Blood Cell Count 8.33 K/mm3 (4.00-11.30)
[2019-03-23 13:21] LABS: Source, Urine Clean Catch
[2019-03-23 13:25] LABS: Bilirubin, Urine Neg (Neg); Blood, Urine Neg (Neg); Glucose Qualitative, Urine Neg (Neg); Ketones, Urine Neg (Neg); Leukocyte Esterase, Urine Neg (Neg); Nitrite, Urine Neg (Neg); Protein, Urine Neg (Neg); Urobilinogen, Urine NORM (Normal); pH, Urine 6.5 (5.0-8.0)
[2019-03-23 13:26] LABS: Appearance, Urine Clear (Clear); Color, Urine Yellow (P-Yellow)
[2019-03-23 14:28] LABS: Alanine Aminotransfer (ALT/SGP 44 U/L (12-78); Albumin, Blood 3.9 g/dL (3.4-5.0); Albumin/Globulin Ratio 1.1 (0.8-1.8); Alk Phos 98 U/L (50-136); Anion Gap 8 mmol/L (6-16); Aspartate Aminotrans (AST/SGOT 31 U/L (12-37); Bilirubin, Total 0.5 mg/dL (0.1-1.0); Blood Urea Nitrogen 9 mg/dL (8-24); Bun/Creatinine Ratio 12.9 (12.0-20.0); CO2, Blood 26 mmol/L (21-32); Calcium, Blood 9.4 mg/dL (8.5-10.1); Chloride, Blood 107 mmol/L (98-108); Globulin, Blood 3.7 g/dL (2.2-4.0); Glomerular Filtration Rate >60 (60-); Glucose, Blood 99 mg/dL (70-99); Potassium, Blood 3.8 mmol/L (3.5-5.5); Sodium, Blood 141 mmol/L (136-145); Total Protein, Blood 7.6 g/dL (6.4-8.2)
== END 2019-03-23 16:00 | disposition home or self-care (01) ==
LOC: ER 11:30
PROVIDERS: Physician Assistant
DX: R29.898 Other symptoms and signs involving the musculoskeletal system (principal); R20.9 Unspecified disturbances of skin sensation; F20.9 Schizophrenia, unspecified; F17.200 Nicotine dependence, unspecified, uncomplicated; Z79.899 Other long term (current) drug therapy; Z79.891 Long term (current) use of opiate analgesic
CPT/HCPCS: 36415; 72141; 80053; 81003; 85025; 85651; 86140; 93005; 93010; 96374; 99284-25; J2060

== ENCOUNTER 2019-03-28 10:31 | Inpatient (IN) | payer MEDICARE, OTHER ==
[~2019-03-28] VITALS: Ht 185.4 cm; Wt 95.6 kg
[2019-03-28 12:11] LABS: BASOPHILS ABSOLUTE AUTO 0.05 K/mm3 (0.00-0.23); BASOPHILS PERCENT AUTO 1 % (0-2); EOSINOPHILS ABSOLUTE AUTO 0.16 K/mm3 (0.00-0.68); EOSINOPHILS PERCENT AUTO 2 % (0-6); Hematocrit 43.6 % (37.0-53.0); Hemoglobin 14.2 g/dL (13.5-17.5); IMMATURE GRAN ABSOLUTE AUTO 0.01 K/mm3 (0.00-0.10); IMMATURE GRAN PERCENT AUTO 0 % (0-1); LYMPHOCYTES PERCENT AUTO 23 % (21-46); MONOCYTES ABSOLUTE AUTO 0.81 K/mm3 (0.16-1.47); MONOCYTES PERCENT AUTO 10 % (4-13); Mean Corpuscular HGB 30.1 pg (26.0-34.0); Mean Corpuscular HGB Conc 32.6 g/dL (31.5-36.5); Mean Platelet Volume 10.9 fL (9.1-12.4); NEUTROPHILS PERCENT AUTO 64 % (41-73); Platelet Count 220 K/mm3 (150-400); RDW Coefficient Variation 12.9 % (11.7-14.2); RDW Standard Deviation 43.8 fL (35.1-46.3); Red Blood Cell Count 4.71 M/mm3 (4.30-5.90); White Blood Cell Count 8.13 K/mm3 (4.00-11.30)
[2019-03-28 12:19] LABS: Mean Corpuscular Volume 93 fL (80-100)
[2019-03-28 12:43] LABS: Alanine Aminotransfer (ALT/SGP 52 U/L (12-78); Albumin, Blood 3.5 g/dL (3.4-5.0); Alk Phos 89 U/L (50-136); Anion Gap 3 mmol/L (6-16); Aspartate Aminotrans (AST/SGOT 46 U/L (12-37); Bilirubin, Total 0.5 mg/dL (0.1-1.0); Blood Urea Nitrogen 16 mg/dL (8-24); Bun/Creatinine Ratio 30.2 (12.0-20.0); CO2, Blood 27 mmol/L (21-32); Calcium, Blood 9.1 mg/dL (8.5-10.1); Chloride, Blood 107 mmol/L (98-108); Creatinine, Blood 0.53 mg/dL (0.60-1.20); Globulin, Blood 3.4 g/dL (2.2-4.0); Glomerular Filtration Rate >60 (60-); Glucose, Blood 107 mg/dL (70-99); Potassium, Blood 4.3 mmol/L (3.5-5.5); Sodium, Blood 137 mmol/L (136-145); Total Protein, Blood 6.9 g/dL (6.4-8.2); Troponin I <0.015 ng/mL (0.000-0.040)
[2019-03-28 15:49] LABS: Source, Urine Clean Catch
[2019-03-28 15:54] LABS: Appearance, Urine Clear (Clear); Bilirubin, Urine Neg (Neg); Blood, Urine Neg (Neg); Color, Urine Yellow (P-Yellow); Glucose Qualitative, Urine Neg (Neg); Ketones, Urine Neg (Neg); Leukocyte Esterase, Urine Neg (Neg); Nitrite, Urine Neg (Neg); Protein, Urine Neg (Neg); Urobilinogen, Urine NORM (Normal)
[2019-03-28 16:07] LABS: U Amphetamine Screen DETECTED; U Barbituate Screen Not Detected; U Benzodiazapine Screen Not Detected; U Buprenorphine Screen Not Detected; U Cannabinoids Screen DETECTED; U Cocaine Screen Not Detected; U Methadone Screen Not Detected; U Methamphetamine Screen DETECTED; U Opiates Screen Not Detected; U Oxycodone Screen Not Detected; U Phencyclidine Screen Not Detected; U Propoxyphene Screen Not Detected
[2019-03-28 16:14] LABS: Magnesium, Blood 1.9 mg/dL (1.6-2.4)
[2019-03-28 16:16] LABS: Thyroid Stimulating Hormone 0.39 uIU/mL (0.360-4.800)
[2019-03-28 18:38] LABS: PCO2 Arterial 44.7 mmHg (35-45); PO2 Arterial 71.1 mmHg (80-100); pH Blood Arterial 7.44 (7.35-7.45)
--- NOTE | 2019-03-29 04:51 | NUR ---
Shift summary. Pt admitted to medical floor at beginning of shift. Admission completed. Pt was able to sleep most of night with no c/o discomfort. Pt on telemetry- SR at 77 per director telecommunications. Pt stated that he felt he can no longer live at home. Home discharge planning needed. Pt denied taking any recreational drugs even though he is positive for meth, amphetamine, and THC.
[2019-03-29 05:13] LABS: BASOPHILS ABSOLUTE AUTO 0.04 K/mm3 (0.00-0.23); BASOPHILS PERCENT AUTO 1 % (0-2); EOSINOPHILS PERCENT AUTO 4 % (0-6); Hematocrit 40.5 % (37.0-53.0); Hemoglobin 13.5 g/dL (13.5-17.5); IMMATURE GRAN ABSOLUTE AUTO 0.01 K/mm3 (0.00-0.10); IMMATURE GRAN PERCENT AUTO 0 % (0-1); LYMPHOCYTES ABSOLUTE AUTO 1.99 K/mm3 (0.84-5.20); LYMPHOCYTES PERCENT AUTO 37 % (21-46); MONOCYTES ABSOLUTE AUTO 0.58 K/mm3 (0.16-1.47); MONOCYTES PERCENT AUTO 11 % (4-13); Mean Corpuscular HGB Conc 33.3 g/dL (31.5-36.5); Mean Platelet Volume 11.2 fL (9.1-12.4); NEUTROPHILS ABSOLUTE AUTO 2.52 K/mm3 (1.96-9.15); NEUTROPHILS PERCENT AUTO 47 % (41-73); Platelet Count 182 K/mm3 (150-400); RDW Coefficient Variation 12.9 % (11.7-14.2); RDW Standard Deviation 42.7 fL (35.1-46.3); White Blood Cell Count 5.34 K/mm3 (4.00-11.30)
[2019-03-29 05:18] LABS: Mean Corpuscular Volume 90 fL (80-100)
[2019-03-29 05:43] LABS: Anion Gap 5 mmol/L (6-16); Blood Urea Nitrogen 15 mg/dL (8-24); Bun/Creatinine Ratio 23.8 (12.0-20.0); CO2, Blood 28 mmol/L (21-32); Calcium, Blood 8.9 mg/dL (8.5-10.1); Chloride, Blood 106 mmol/L (98-108); Creatinine, Blood 0.63 mg/dL (0.60-1.20); Glomerular Filtration Rate >60 (60-); Glucose, Blood 108 mg/dL (70-99); Potassium, Blood 4.1 mmol/L (3.5-5.5); Sodium, Blood 139 mmol/L (136-145)
--- NOTE | 2019-03-29 16:58 | NUR ---
PATIENT IS A/OX4, UP WITH 1 ASSIST AND GAIT BELT TO CHAIR. REPORTS SEVERE NECK AND BACK PAIN. MRI OF SPINE CANCELLED TODAY BECAUSE PATIENT IS UNABLE TO LIE FLAT FOR THE NEEDED AMOUNT OF TIME FOR THE STUDY. 20G IV TO R WRIST WNL, NS @150ML/HR INFUSING. SCHEDULED TRAMADOL FOR PAIN AND BACLOFEN GIVEN X1 FOR BACK/NECK SPASMS. VSS, ON RA. SKIN INTACT. USES URINAL WITH ADEQUATE U/O THIS SHIFT. CALM AND COOPERATIVE WITH CARE, CALLS APPROPRIATELY FOR ASSISTANCE.
--- NOTE | 2019-03-30 04:41 | NUR ---
Shift summary. Pt sleeping most of shift. Pt given ultram at hs with adequate pain relief. Pt still very unsteady when up. Pt on telemetry- SR at 76 MRI cancelled yesterday. Pt unable to lay still and is claustrophobic.
--- NOTE | 2019-03-30 17:45 | NUR ---
PATIENT IS ALERT AND ORIENTED AND COOPERATIVE WITH CARE. COMPLAINTS OF PAIN IN HIS NECK AND BACK. OXYGEN WAS PLACED BACK ON THE PATIENT THIS AFTERNOON AT HIS REQUEST. PATIENT USES THE URINAL INDEPENDENTLY. NEW IV PLACED IN THE LEFT HAND. WILL CONTINUE TO MONITOR
--- NOTE | 2019-03-31 04:48 | NUR ---
Shift summary. Pt slept well overnight. Pt unable to tolerate laying flat on back because of respiratory distress. Pt scheduled for an mri with sedative to be given before the procedure. Had resp tx x 2 during the night. Pt states he still feels very weak
[2019-03-31 16:37] LABS: Base Excess Venous 12.6 mmol/L; Bicarbonate Venous 32.3 mmol/L (24.0-30.0); PCO2 Venous 64.5 mmHg (38-42); PO2 Venous 31.9 mmHg (38-42); pH Blood Venous 7.38 (7.34-7.37)
--- NOTE | 2019-03-31 18:20 | NUR ---
PT A&O X4. PT UP TO CHAIR X2 WITH 2 PERSON SBA, FWW, AND GB. PT C/0 CONSISTENT PAIN IN BACK AND NECK THROUGHOUT SHIFT, MEDICATED PER EMAR. PT RECEIVED BED BATH FROM STUDIO MODEL. LEFT MESSAGE TO DOCTOR O'WILLIS ABOUT CT PE RESULTS.
--- NOTE | 2019-04-01 04:26 | NUR ---
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
[2019-04-01 04:52] LABS: BASOPHILS ABSOLUTE AUTO 0.05 K/mm3 (0.00-0.23); BASOPHILS PERCENT AUTO 1 % (0-2); EOSINOPHILS ABSOLUTE AUTO 0.34 K/mm3 (0.00-0.68); EOSINOPHILS PERCENT AUTO 4 % (0-6); Hematocrit 45.1 % (37.0-53.0); Hemoglobin 14.8 g/dL (13.5-17.5); IMMATURE GRAN ABSOLUTE AUTO 0.02 K/mm3 (0.00-0.10); IMMATURE GRAN PERCENT AUTO 0 % (0-1); LYMPHOCYTES ABSOLUTE AUTO 2.65 K/mm3 (0.84-5.20); LYMPHOCYTES PERCENT AUTO 33 % (21-46); MONOCYTES ABSOLUTE AUTO 0.84 K/mm3 (0.16-1.47); MONOCYTES PERCENT AUTO 10 % (4-13); Mean Corpuscular HGB Conc 32.8 g/dL (31.5-36.5); Mean Corpuscular Volume 91 fL (80-100); Mean Platelet Volume 11.7 fL (9.1-12.4); NEUTROPHILS PERCENT AUTO 52 % (41-73); Platelet Count 177 K/mm3 (150-400); RDW Coefficient Variation 12.7 % (11.7-14.2); RDW Standard Deviation 42.2 fL (35.1-46.3); Red Blood Cell Count 4.94 M/mm3 (4.30-5.90)
[2019-04-01 05:11] LABS: Anion Gap 4 mmol/L (6-16); Blood Urea Nitrogen 20 mg/dL (8-24); Bun/Creatinine Ratio 28.1 (12.0-20.0); CO2, Blood 32 mmol/L (21-32); Calcium, Blood 8.9 mg/dL (8.5-10.1); Chloride, Blood 104 mmol/L (98-108); Creatinine, Blood 0.71 mg/dL (0.60-1.20); Glomerular Filtration Rate >60 (60-); Glucose, Blood 113 mg/dL (70-99); Potassium, Blood 3.9 mmol/L (3.5-5.5); Sodium, Blood 140 mmol/L (136-145)
--- NOTE | 2019-04-01 17:25 | NUR ---
PT UP TO CHAIR TODAY WITH 2 PERSON ASSIST, SAM, FWW. PT REFUSED SHOWER. PT DENIED ANY N/V AND MEDICATED FOR BACK PAIN/SHOULDER PAIN PER EMAR. PT UNABLE TO COMPLETE MRI THIS MORNING WITH XANAX ADMINISTERED 30 MIN PRIOR. PT O2 LEVELS REMAIN AT 88-89% WITH 4 L OF 02. TELE DISCONTINUED PER DOCTORS ORDERS. BED ALARM ON, BED IN LOW POSITION, CALL LIGHT IN REACH.
[2019-04-01 17:53] LABS: International Normalized Ratio 0.99; Prothrombin Time Results 10.5 Sec (9.7-11.5)
[2019-04-02 05:19] LABS: Hematocrit 44.1 % (37.0-53.0); Hemoglobin 14.2 g/dL (13.5-17.5); Mean Corpuscular HGB 29.9 pg (26.0-34.0); Mean Corpuscular HGB Conc 32.2 g/dL (31.5-36.5); Mean Corpuscular Volume 93 fL (80-100); Mean Platelet Volume 11.4 fL (9.1-12.4); Platelet Count 182 K/mm3 (150-400); RDW Coefficient Variation 12.4 % (11.7-14.2); RDW Standard Deviation 42.9 fL (35.1-46.3); Red Blood Cell Count 4.75 M/mm3 (4.30-5.90)
--- NOTE | 2019-04-02 05:40 | NUR ---
PER CHARGE ATTEMPTED TO CALL CX PER ORDER SEVERAL TIMES BUT NUMBER IS NO GOOD. WILL PASS TO DAY SHIFT
[2019-04-02 05:43] LABS: Albumin, Blood 3.1 g/dL (3.4-5.0); Anion Gap 3 mmol/L (6-16); Blood Urea Nitrogen 18 mg/dL (8-24); Bun/Creatinine Ratio 27.1 (12.0-20.0); CO2, Blood 32 mmol/L (21-32); Calcium, Blood 8.9 mg/dL (8.5-10.1); Chloride, Blood 104 mmol/L (98-108); Creatinine, Blood 0.66 mg/dL (0.60-1.20); Glomerular Filtration Rate >60 (60-); Glucose, Blood 126 mg/dL (70-99); Phosphorus, Blood 2.7 mg/dL (2.5-4.9); Potassium, Blood 3.8 mmol/L (3.5-5.5); Sodium, Blood 139 mmol/L (136-145)
--- NOTE | 2019-04-02 19:15 | NUR ---
SHIFT SUMMARY ROB HX. OX2. SLEPT INTERMITTENTLY THROUGHOUT DAY. EATING AND DRINKING WELL. 2 PERSON ASSIST FOR TRANSFERS. AWAITING CONSULT FROM ANESTHESIA SCHEDULED FOR TOMORROW.
--- NOTE | 2019-04-03 04:17 | NUR ---
SHIFT SUMMARY. PT IS ALERT, AND ORIENTED. PT CONTINUES TO LACE FINE MOTOR SKILLS. PERRLA IS PRESENT AND NO NEW NEUROLOGICAL DEFICITS NOTED. PT DOESN'T COMPLAIN OF SOB, ALTHOUGH HE STILL ISN'T AT HIS BASELINE O2 NEEDS. CONTINUOUS PULSE OX IN PLACE, NO ALARMS THIS SHIFT. PT CONTINUES TO COMPLAIN OF BACK PAIN. WILL CONTINUE TO MONITOR.
--- NOTE | 2019-04-03 18:06 | NUR ---
SUMMARY PT BACK TO BED AFTER BEING UP IN THE CHAIR TO EAT HIS DINNER, PT HAS BEEN PLEASANT AND COOPERATIVE WITH CARE TODAY, PT HAD A CHOKING FIT AT LUNCH AND PANICKED THAT HE COULD NOT BREATH, NT SUCTIONED AND PT COUGHED UP SOME OF HIS LUNCH THAT HE INHALED, EDUCATE THE PT ABOUT EATING MORE SLOWLY, PT HAS WORKED WITH PT/OT TODAY, MED PER EMAR FOR PAIN SCHEDULED, VSS, NO ACUTE CHANGES, WILL CONT TO MONITOR
--- NOTE | 2019-04-04 04:38 | NUR ---
SHIFT SUMMARY PT IS ALERT AND ORIENTED AND CONTINUES TO NEED ASSISTANCE OUT OF BED. PT STATED HIS PAIN WAS BETTER CONTROLLED THEN THE NIGHT BEFORE. PULSE OX CONTINUES TO BE IN PLACE. PT'S O2 SATS REMAINED ABOVE 90%. IT WAS NOTED THAT THE PT HAD A RDZ SPUTUM WITH A SMALL AMOUNT OF HEMOPTYSIS. HOSPITALIST WAS MADE AWARE, THIS RN DIDN'T SEE ANY MENTION IN PREVIOUS CHARTING. NO OTHER COMPLAINTS FROM PT AT THIS TIME. VSS. WILL COTINUE TO MONITOR.
--- NOTE | 2019-04-04 18:19 | NUR ---
SUMMARY PT SITTING UP IN BED EATING DINNER AND VISITING WITH A FRIEND, PT HAS WORKED WITH PT/OT TODAY, REMAINS ON 2L NC, PT HAS BEEN PLEASANT AND COOPERATIVE WITH CARE, VSS, NO ACUTE CHANGES, WILL CONT TO MONITOR
--- NOTE | 2019-04-05 04:25 | NUR ---
SHIFT SUMMARRY PT IS ALERT, ORIENTED, AND NEEDS ASSISTANCE OOB. PT HAD NO NEUROLOGICAL CHANGES DURING THE SHIFT AND ONLY COMPLAINED OF DYSPNEA ON EXERTION. PT WAS ABLE TO MAINTAIN 90% O2 ON 2L NC. PT CONTINUES TO HAVE PAIN, BUT SAID THE ORDERED ANALGESICS WERE ADEQUATE. PT REFUSED HEATING PAD WHEN IT WAS OFFERRED. PULSE OX REMAINS IN PLACE. VSS. WILL CONTINUE TO MONITOR.
--- NOTE | 2019-04-05 04:28 | NUR ---
SHIFT SUMMARY PT CONTINUES TO COMPLAIN OF PAIN, THOUGH HE WAS ABLE TO GET SOME SLEEP TONIGHT. PT DID NO REQUEST FURTHER PAIN INTERVENTIONS AT THIS TIME. THE MEPELEX ON HIS LEFT LEG WAS CHANGED IT WAS COMING OFF. NO DRAINAGE NOTED. PT CONTINUES TO HAVE A GOOD APPETITE. NO OTHER COMPLAINTS AT THIS TIME. WILL CONTINUE TO MONTITOR.
[2019-04-05 08:53] LABS: Hematocrit 45.2 % (37.0-53.0); Hemoglobin 14.9 g/dL (13.5-17.5); Mean Corpuscular Volume 91 fL (80-100); Mean Platelet Volume 10.4 fL (9.1-12.4); Platelet Count 223 K/mm3 (150-400); RDW Coefficient Variation 12.4 % (11.7-14.2); RDW Standard Deviation 41.1 fL (35.1-46.3); Red Blood Cell Count 4.96 M/mm3 (4.30-5.90); White Blood Cell Count 5.35 K/mm3 (4.00-11.30)
--- NOTE | 2019-04-05 19:43 | NUR ---
END OF SHIFT REPORT: PATIENT PARTICIPATED IN CARE TODAY. PATIENT CALM AND COOPERATIVE THROUGHOUT SHIFT. PATIENT EXPRESSED SOME ANXIETY AT TIMES ABOUT THE LACK OF STRENGTH IN HIS RIGHT ARM AND LACK OF RANGE OF MOTION OF THE RIGHT ARM. REMINDED PATIENT OF THE PROGRESS THAT HE HAS MADE SINCE ADMISSION. PATIENT REPORTS THAT HE IS NOT GOING TO "GIVE UP" AND BY THE END OF THE SHIFT, HE REPORTED THAT HE WOULD LIKE TO DISCHARGE TO A REHAB FACILITY. PATIENT UP TO BATHROOM MULTIPLE TIMES. PATIENT WORKED WITH PT IN THE HALLWAY. PATIENT UP TO CHAIR FOR MEALS. PATIENT REPORTED SOB IN THE AFTERNOON. AFTER PRN RT TREATMENT, PATIENT REPORTED FEELING BETTER. PATIENT ABLE TO HAVE A BOWEL MOVEMENT TODAY. PATIENT REPORTED THAT THIS HAS ALSO MADE HIM FEEL BETTER. PATIENT REPORTS INCREASED PAIN IN LOWER BACK. ASSISTED PATIENT WITH REPOSITIONING IN THE BED AND ENCOURAGED MOBILITY AND UP TO THE CHAIR. PATIENT CONTINUES TO HAVE WEAKNESS AND LIMITED ROM IN RIGHT ARM. ABLE TO PERFORM MOST ADLS WITH THIS ARM AND HAND, HOWEVER. FOR EXAMPLE, PATIENT ABLE TO EAT DINNER WITH THIS HAND. PATIENT CONTINUES TO HAVE AN IRREGULAR GAIT. STEADY ON FEET AND USES WALKER APPROPRIATELY.
--- NOTE | 2019-04-06 07:22 | NUR ---
04/06/19 0600 AWAKENED FOR AM MED. SLEPT WELL LAST NIGHT. VITALS STABLE. 02 AT 2.5 LPM VIA N/C. CONT. PULSE OXIMETER IN PLACE. VOIDING QS.
--- NOTE | 2019-04-06 17:59 | NUR ---
Shift Summary A/Ox4. 1p assist to chair for meals. Continent of urine. Pleasant and cooperative with care. C/o no relief of pain despite scheduled meds given. States 8/10 pain before and after meds. No c/o N/V/D; however, patient did state he felt weaker today. VSS, afebrile. No other acute changes this shift.
--- NOTE | 2019-04-07 01:49 | NUR ---
04/07/19 2150 ENCOURAGED TO TURN SIDE TO SIDE BUT DECLINED FOR NOW. INSTRUCTED ON INCENTIVE SPIROMETER USE EVERY ONE HOUR WHEN AWAKE. ONLY WAS ABLE TO GET TO 750 ON METER. ENCOURAGED DEEP BREATHS Q HOUR WHEN AWAKE. STATES HE WILL DO.
--- NOTE | 2019-04-07 07:18 | NUR ---
04/07/19 0615 AWAKENED FOR AM MEDS. NO COMPLAINTS THIS AM. VITALS STABLE. ENCOURAGED IS Q ONE HOUR WHEN AWAKE. VITALS STABLE.
--- NOTE | 2019-04-07 17:16 | NUR ---
Shift Summary A/Ox3. Pleasant and cooperative with care. Showered today c 1 assist. Up in chair for meals. C/O chronic pain in back and R shoulder, medicated per emar with scheduled meds. No c/o N/V/D. Able to make needs known. VSS, afebrile.
--- NOTE | 2019-04-08 06:24 | NUR ---
04/08/19 0615 AM MED GIVEN. DENIES ANY S/S. VITALS STABLE. UNEVENTFUL NIGHT.
[2019-04-08] MEDS ORDERED: XARELTO15 MG PO (11:58)
[2019-04-08] MEDS ORDERED: LIDO700A20 TOP (13:00)
[2019-04-08] MEDS ORDERED: METO25ER PO (13:01)
[2019-04-08] MEDS ORDERED: MIRT15 PO (13:01)
--- NOTE | 2019-04-08 13:55 | NUR ---
DISCHARGE PATIENT DISCHARGED HOME AROUND [id number] WITH RIDE FROM FRIEND. IV REMOVED. DISCHARGE PACKET GIVEN TO PATIENT, MED CHANGES EXPLAINED, PT VERBALIZED UNDERSTANDING AND SIGNED DC FORM.
== END 2019-04-08 13:20 | disposition home health service (06) | DRG 175 ==
LOC: ER 10:31 → MEDS 18:08 → ER 19:23 → MEDS 19:30 → ENPENDDIS 04-08 11:12 → MEDS 04-08 13:20
PROVIDERS: Emergency Medicine; Internal Medicine; ADMIT Internal Medicine
DX: I26.99 Other pulmonary embolism without acute cor pulmonale (principal); J96.21 Acute and chronic respiratory failure with hypoxia; F20.0 Paranoid schizophrenia; R27.0 Ataxia, unspecified; R20.0 Anesthesia of skin; J44.9 Chronic obstructive pulmonary disease, unspecified; Z99.81 Dependence on supplemental oxygen; F20.9 Schizophrenia, unspecified; M51.37 Other intervertebral disc degeneration, lumbosacral region; M48.07 Spinal stenosis, lumbosacral region; W19.XXXA Unspecified fall, initial encounter
CPT/HCPCS: 36415; 36600; 70450; 71046; 71260; 72110; 72131; 80048; 80053; 80069; 81003; 82803; 83735; 84443; 84484; 85025; 85027; 85379; 85610; 85651; 85730; 93005; 93010; 94640; 94760; 94762; 97110; 97116; 97161; 97165; 97530; 97535; 99285-25; A9270; G0480; J1650; J7030; Q9967

== ENCOUNTER 2019-04-13 21:00 | Emergency (ER) | payer MEDICARE, OTHER ==
[~2019-04-13] VITALS: Ht 182.9 cm; Wt 86.2 kg
[~2019-04-13 21:00] MED LIST changes: +METO25ER PO; +XARELTO15 MG PO
== END 2019-04-14 02:18 | disposition home or self-care (01) ==
LOC: ER 21:00
DX: S39.012A Strain of muscle, fascia and tendon of lower back, initial encounter (principal); W06.XXXA Fall from bed, initial encounter; Z87.891 Personal history of nicotine dependence; Z79.899 Other long term (current) drug therapy; Z79.891 Long term (current) use of opiate analgesic
CPT/HCPCS: 72100; 99283-25; A9270